=== PATIENT | male | born 1955 | race Caucasian/White ===

== ENCOUNTER 2016-08-04 11:30 | Inpatient (IN) | payer MEDICAID ==
[2016-08-05] MEDS ORDERED: CEFAZOLIN SODIUM 1 GM in NORMAL SALINE MINI-BAG+ 100 ML IV ONE (16:04)
[2016-08-09] MEDS ORDERED: LIDOCAINE HCL 1% 20 ML VIAL SUBCUT ONE (08:50)
[2016-08-09] MEDS ORDERED: ONDANSETRON HCL 4 MG/2 ML VIAL IV ONE (08:50)
[2016-08-09] MEDS ORDERED: FAMOTIDINE IN SALINE, ISO-OSM 20 MG/50 ML PIGGYBACK IV SCH ×2 (09:00→14:15)
[2016-08-09] MEDS ORDERED: TRANEXAMIC ACID 1,000 MG in NORMAL SALINE 100 ML IV SCH ×2 (09:00→14:15)
[2016-08-09] MEDS ORDERED: LACTATED RINGERS 1,000 ML IV SCH ×3 (09:00→15:00)
[2016-08-09] MEDS ORDERED: BACITRACIN 50,000 UNITS VIAL IM ONE ×2 (09:31→09:41)
[2016-08-09] MEDS ORDERED: BACITRACIN 14 APP/14 GM TUBE TOPICAL ONE (09:31)
[2016-08-09] MEDS ORDERED: BUPIVACAINE/EPI 0.25% 1 VIAL VIAL ONE (09:31)
[2016-08-09] MEDS ORDERED: KETOROLAC TROMETHAMINE 30 MG/ML VIAL ONE (09:32)
[2016-08-09] MEDS ORDERED: MORPHINE SULFATE/PF 10 MG/10 ML VIAL ONE ×2 (09:32→09:51)
[2016-08-09] MEDS ORDERED: ROPIVACAINE HCL 0.5% 30 ML ONE (09:34)
[2016-08-09 09:50] LABS: URINE APPEARANCE CLEAR; URINE COLOR YELLOW
[2016-08-09] MEDS ORDERED: TETRACAINE HCL 1% 20 MG/2 ML AMP ONE (09:50)
[2016-08-09 09:51] LABS: URINE BILIRUBIN NEGATIVE (NEGATIVE); URINE BLOOD NEGATIVE (NEGATIVE); URINE GLUCOSE NORMAL (NEGATIVE); URINE KETONE NEGATIVE (NEGATIVE); URINE LEUKOCYTE ESTERASE NEGATIVE (NEGATIVE); URINE NITRITE NEGATIVE (NEGATIVE); URINE PROTEIN NEGATIVE (NEG - TRACE); URINE SPECIFIC GRAVITY > OR = 1.030 (0.001-1.035); URINE UROBILINOGEN 0.2mg/dL (Normal) (NEG-1mg/dL)
[2016-08-09] MEDS ORDERED: FENTANYL 100 MCG/2 ML VIAL ONE (09:51)
[2016-08-09] MEDS ORDERED: CEFAZOLIN SODIUM 1 GM/10 ML VIAL ONE ×2 (09:59→15:13)
[2016-08-09] MEDS ORDERED: MIDAZOLAM HCL 2 MG/2 ML VIAL ONE (10:42)
[2016-08-09] MEDS ORDERED: MIDAZOLAM HCL 2 MG/2 ML SYR IV SCH (11:00)
[2016-08-09] MEDS ORDERED: LIDOCAINE HCL 2% 20 ML VIAL ONE (11:13)
[2016-08-09] MEDS ORDERED: MIDAZOLAM HCL 2 MG/2 ML SYR IV ONE ×2 (12:00→14:15)
[2016-08-09] MEDS ORDERED: ONDANSETRON HCL 4 MG/2 ML VIAL IV PRN ×3 (14:15→18:25)
[2016-08-09] MEDS ORDERED: MORPHINE SULFATE 10 MG/ML SYR IV PRN (14:15)
[2016-08-09] MEDS ORDERED: NALBUPHINE HCL 10 MG/ML AMP IV PRN ×4 (14:15→15:31)
[2016-08-09] MEDS ORDERED: FENTANYL 100 MCG/2 ML VIAL IV PRN (14:15)
[2016-08-09] MEDS ORDERED: NALOXONE HCL 0.4 MG/ML VIAL IV PRN ×12 (14:15→15:31)
[2016-08-09] MEDS ORDERED: DIPHENHYDRAMINE 50 MG/ML VIAL IV PRN ×4 (14:15→15:31)
[2016-08-09] MEDS ORDERED: DIPHENHYDRAMINE 25 MG CAPSULE PO PRN ×4 (14:15→15:31)
[2016-08-09] MEDS ORDERED: HYDROmorphone HCL 2 MG TABLET PO PRN ×2 (14:52→15:31)
[2016-08-09] MEDS ORDERED: ACETAMINOPHEN 325 MG TABLET PO PRN (14:52)
[2016-08-09] MEDS ORDERED: HYDROcodone/APAP 5/325 MG 1 TAB TABLET PO PRN (14:52)
[2016-08-09] MEDS: CEFAZOLIN SODIUM 1 GM in NORMAL SALINE MINI-BAG+ 100 ML IV SCH ×2 (15:05→22:30)
[2016-08-09] MEDS: ONDANSETRON HCL 4 MG/2 ML VIAL IV PRN ×2 (15:07→16:54)
[2016-08-09] MEDS: LACTATED RINGERS 1,000 ML IV SCH (15:48)
--- NOTE | 2016-08-09 15:54 | OPERATIVE REPORT ---
DATE OF SURGERY: 08/09/16 SURGEON: Austen Feliz DO ANESTHESIA: Spinal. PREOPERATIVE DIAGNOSIS: Left knee osteoarthritis. POSTOPERATIVE DIAGNOSIS: Left knee osteoarthritis. OPERATION PERFORMED: Left total knee arthroplasty. SPECIMENS REMOVED: Diseased bone and soft tissue. ESTIMATED BLOOD LOSS: Minimal. COMPLICATIONS: None. TOTAL TOURNIQUET TIME: 72 minutes. ORTHOPEDIC IMPLANTS 1. [employer] cobalt bone cement high viscosity with gentamycin. 2. [employer] enMarkitguard knee symptoms, series A, standard patella with 3 pegs, ultrahigh molecular weight polyethylene size 37 x 10 mm. 3. [employer] fixed cruciate plate with interlock block titanium/cobalt chrome molybdenum alloy size 79. 4. [employer] en[employer]it[employer] knee system, posterior stabilized tibial bearing 14 mm x 79/83 mm, ultrahigh molecular weight polyethylene. 5. [employer] posterior stabilized open box femoral component left, size 70 mm, cobalt chrome molybdenum alloy. PROCEDURE NOTE: The patient was brought to the operating room suite and after administration of spinal anesthesia the left lower extremity was prepped and draped in a sterile fashion. The incision site was injected with 0.25% bupivacaine with epinephrine prior to incision. A longitudinal linear midline incision was made over the anterior knee, and dissection was carried down bluntly and sharply to the level of the extensor mechanism. Any small bleeders were cauterized with an electrocautery device. A medial parapatellar arthrotomy was performed. Soft tissue dissection and releases were performed removing a portion of the anterior fat pad and the medial lateral meniscus and the anterior cruciate ligament and part of the posterior cruciate ligament. An intramedullary drill was inserted into the femoral canal, retrograde, followed by insertion of the cutting jig set at 5 degrees of valgus and 9 mm of distal cut. The appropriate bone defects were made on the femur, followed by extramedullary cutting jig of the tibia to the appropriate level with its appropriate bone defects, followed by the patella. The patient then received one gram of tranexamic acid IV over 30 minutes. Trial implants were inserted and taken through full range of motion and the knee was noted to be exceptionally stable through all range of motions, both flexion, extension, varus/valgus, shock and toggle. The trial implants were removed, and the knee was copiously irrigated with bacitracin infused with normal saline with a pulsatile lavage. The bone surfaces were tamped dry with lap sponges and cement was interdigitated into the bone through finger impaction, followed by insertion of the final implants. An appropriate sized spacer was inserted in the heel, and the patient's leg was placed on the Joaquin stand. All excess cement was removed while the patellar button was cemented into place. The cocktail containing 150 mg of ropivacaine, 15 mg of Ketoralac, 0.3 mg epinephrine, and 4 mg morphine sulfate in total volume of 60 mL, making up the difference utilizing 0.9% normal saline for a total volume of 60 mL was injected into the surrounding soft tissues and joint capsule. After the cement had hardened, the knee was again copiously irrigated with bacitracin infused with normal saline with pulsatile lavage and the final polyethylene implant was locked into place. The knee was closed in flexion utilizing #2 Fiberwire intermittently with #1 Vicryl, followed by 0 Vicryl, followed by 2-0 Vicryl, followed by running subcutaneous closure utilizing 3-0 Monocryl, followed by subcutaneous closure with 3-0 Monocryl, followed by Dermabond, followed by application of an impervious occlusive foam dressing impregnated with silver. The leg was wrapped with an Yuniel bandage. The patient did have a Hemovac drain placed prior to closure. NATY hose was applied, followed by a Cryo-Cuff, and the patient was transferred from the OR suite to the recovery room in stable condition. BINTA
[2016-08-09] MEDS ORDERED: TRANEXAMIC ACID 1,000 MG in NORMAL SALINE 100 ML IV ONE (20:00)
[2016-08-09] MEDS: DOCUSATE SODIUM 100 MG CAPSULE PO SCH (20:55)
[2016-08-09] MEDS: ASCORBIC ACID 500 MG TABLET PO SCH (20:55)
[2016-08-09] MEDS ORDERED: DOCUSATE SODIUM 100 MG CAPSULE PO SCH (21:00)
[2016-08-09] MEDS ORDERED: ASCORBIC ACID 500 MG TABLET PO SCH (21:00)
[2016-08-09] MEDS ORDERED: CEFAZOLIN SODIUM 1 GM in NORMAL SALINE MINI-BAG+ 100 ML IV SCH (22:00)
[2016-08-10] MEDS: LACTATED RINGERS 1,000 ML IV SCH (05:21)
[2016-08-10 05:45] LABS: BASOPHILS 0.7 % (0.0-2.0); EOSINOPHILS 4.7 % (0.0-6.0); EOSINOPHILS# 0.3 X 10^3uL (0.0-0.4); HEMATOCRIT 38.3 % (42.0-54.0); HEMOGLOBIN 12.7 g/dL (14.0-18.0); LYMPHOCYTES 25.9 % (20.0-40.0); LYMPHOCYTES# 1.5 X 10^3uL (0.8-3.8); MEAN CELL VOLUME 92.8 fL (84.0-102.0); MEAN CORPUS. HGB CONCENTRATION 33.1 g/dL (32.0-36.0); MEAN CORPUSCULAR HEMOGLOBIN 30.7 pg (29.0-35.0); MONOCYTES 9.9 % (2.0-10.0); MONOCYTES# 0.6 X 10^3uL (0.2-1.0); NEUTROPHILS 58.8 % (54.0-75.0); NEUTROPHILS# 3.4 X 10^3uL (2.6-6.7); RED BLOOD COUNT 4.13 X 10^6uL (4.20-6.10); WHITE BLOOD COUNT 5.8 X 10^3uL (3.9-10.7)
[2016-08-10] MEDS: CEFAZOLIN SODIUM 1 GM in NORMAL SALINE MINI-BAG+ 100 ML IV SCH (06:20)
--- NOTE | 2016-08-10 08:27 | PROGRESS NOTE: Orthopedics ---
Orthopedic PN Subjective - Subjective Principal Diagnosis: s/p Left Total Knee Arthroplasty Post-op Day: 1 Interval history: The patient did have some nausea and vomiting last night. He has had good pain control . He has received post operative DVT and antibiotic prophylaxis. Ortho PN Objective Exam - Latest Vital Signs and I&O Latest Vital Signs/I&O: Vital Signs Temp 36.8 C 08/10/16 06:00 Pulse 66 08/10/16 06:00 Resp 18 08/10/16 06:00 BP 120/90 08/10/16 06:00 Pulse Ox 94 08/10/16 06:00 Intake & Output 08/09/16 08/10/16 08/10/16 17:59 05:59 17:59 Intake Total 3115 1699 Output Total 880 300 140 Balance 2235 1399 -140 Weight 92.986 kg Intake: IV 2500 1059 Right Forearm 2500 1059 Oral 615 640 Output: Drainage 255 140 Left Knee 255 140 Urine 425 300 Uretheral (Ayoub) 175 Emesis 200 Other: Urine Appearance Clear Clear Urine Color Yellow Yellow Uretheral (Ayoub) Straw Voiding Method Indwelling Catheter Indwelling Catheter # Bowel Movements 0 08/10/16 08:25 - Post-Operative Exam Post-op Day: 1 Dressing Status: dry & intact Drainage Amount: none Distal Pulses: +2 Active Motor: intact Sensation: intact Sean's sign: Negative Calf tenderness: no Weight bearing status: as tolerated - Lab Labs: Laboratory Last Values WBC 5.8 X 10^3uL (3.9-10.7) 08/10/16 05:10 RBC 4.13 X 10^6uL (4.20-6.10) L 08/10/16 05:10 Hgb 12.7 g/dL (14.0-18.0) L 08/10/16 05:10 Hct 38.3 % (42.0-54.0) L 08/10/16 05:10 MCV 92.8 fL (84.0-102.0) 08/10/16 05:10 MCH 30.7 pg (29.0-35.0) 08/10/16 05:10 MCHC 33.1 g/dL (32.0-36.0) 08/10/16 05:10 RDW 12.0 % (11.5-14.5) 08/10/16 05:10 Plt Count 259 X 10^3uL (130-440) 08/10/16 05:10 MPV 8.0 fL (7.4-10.4) 08/10/16 05:10 Neutrophils % 58.8 % (54.0-75.0) 08/10/16 05:10 Lymphocytes % 25.9 % (20.0-40.0) 08/10/16 05:10 Eosinophils % 4.7 % (0.0-6.0) 08/10/16 05:10 Basophils % 0.7 % (0.0-2.0) 08/10/16 05:10 Neutrophils # 3.4 X 10^3uL (2.6-6.7) 08/10/16 05:10 Lymphocytes # 1.5 X 10^3uL (0.8-3.8) 08/10/16 05:10 Monocytes 9.9 % (2.0-10.0) 08/10/16 05:10 Monocytes # 0.6 X 10^3uL (0.2-1.0) 08/10/16 05:10 Eosinophils # 0.3 X 10^3uL (0.0-0.4) 08/10/16 05:10 Basophils # 0.0 X 10^3uL (0.0-0.1) 08/10/16 05:10 Urine Color Yellow 08/09/16 09:20 Urine Appearance Clear 08/09/16 09:20 Urine pH 5.0 (5-7) 08/09/16 09:20 Ur Specific [place] > or = 1.030 (0.001-1.035) 08/09/16 09:20 Urine Protein Negative (NEG - TRACE) 08/09/16 09:20 Urine Ketones Negative (NEGATIVE) 08/09/16 09:20 Urine Blood Negative (NEGATIVE) 08/09/16 09:20 Urine Nitrate Negative (NEGATIVE) 08/09/16 09:20 Urine Bilirubin Negative (NEGATIVE) 08/09/16 09:20 Urine Urobilinogen 0.2mg/dl (normal) (NEG-1mg/dL) 08/09/16 09:20 Ur Leukocyte Esterase Negative (NEGATIVE) 08/09/16 09:20 Urine Glucose Normal (NEGATIVE) 08/09/16 09:20 - Allied Health Notes Allied health notes reviewed: nursing Assessment and Plan-Ortho - Date of Encounter Date of Encounter: 08/10/16 Estimated anticipated discharge: 08/12/16 Quality Questions - VTE Prophylaxis Assessment VTE Present on Admission?: No Patient at risk for venous thromboembolism?: Yes VTE Risk Level: High Risk VTE Medical Contraindication: Not needed
[2016-08-10] MEDS: ENOXAPARIN SODIUM 30 MG/0.3 ML SYR SUBCUT SCH ×2 (08:31→20:50)
[2016-08-10] MEDS: ASCORBIC ACID 500 MG TABLET PO SCH ×2 (08:32→20:49)
[2016-08-10] MEDS: FOLIC ACID 1 MG TABLET PO SCH (08:32)
[2016-08-10] MEDS: DOCUSATE SODIUM 100 MG CAPSULE PO SCH ×2 (08:32→20:49)
[2016-08-10] MEDS: BISACODYL 5 MG TABLET PO SCH (08:33)
[2016-08-10] MEDS: POLYETHYLENE GLYCOL 3350 17 GM POWD.PACK PO SCH (08:33)
[2016-08-10] MEDS: LISINOPRIL 20 MG TABLET PO SCH (08:49)
[2016-08-10] MEDS ORDERED: ENOXAPARIN SODIUM 30 MG/0.3 ML SYR SUBCUT SCH (09:00)
[2016-08-10] MEDS ORDERED: POLYETHYLENE GLYCOL 3350 17 GM POWD.PACK PO SCH (09:00)
[2016-08-10] MEDS ORDERED: FOLIC ACID 1 MG TABLET PO SCH (09:00)
[2016-08-10] MEDS ORDERED: BISACODYL 5 MG TABLET PO SCH (09:00)
--- NOTE | 2016-08-10 11:47 | RADIOLOGY REPORT ---
Two views of the left knee are compared with prior films dated 10/23/2014. There has been interval placement of left total knee arthroplasty. No other change is identified. Components appear intact and in appropriate position. IMPRESSION: Interval unremarkable left total knee arthroplasty. MTDD
[2016-08-10] MEDS: HYDROcodone/APAP 5/325 MG 1 TAB TABLET PO PRN ×2 (15:04→18:05)
[2016-08-10] MEDS: ACETAMINOPHEN 325 MG TABLET PO PRN (20:49)
[2016-08-10 23:25] VITALS: RESP 18
[2016-08-11] MEDS: ACETAMINOPHEN 325 MG TABLET PO PRN ×2 (02:28→08:13)
[2016-08-11 05:58] LABS: BASOPHILS 0.6 % (0.0-2.0); EOSINOPHILS 2.1 % (0.0-6.0); EOSINOPHILS# 0.2 X 10^3uL (0.0-0.4); HEMATOCRIT 35.8 % (42.0-54.0); HEMOGLOBIN 11.5 g/dL (14.0-18.0); LYMPHOCYTES 14.1 % (20.0-40.0); MEAN CELL VOLUME 92.3 fL (84.0-102.0); MEAN CORPUSCULAR HEMOGLOBIN 29.6 pg (29.0-35.0); MEAN PLATELET VOLUME 8.2 fL (7.4-10.4); MONOCYTES 10.7 % (2.0-10.0); MONOCYTES# 0.8 X 10^3uL (0.2-1.0); NEUTROPHILS 72.5 % (54.0-75.0); NEUTROPHILS# 5.2 X 10^3uL (2.6-6.7); RED BLOOD COUNT 3.88 X 10^6uL (4.20-6.10); RED CELL DISTRIBUTION WIDTH 11.9 % (11.5-14.5); WHITE BLOOD COUNT 7.2 X 10^3uL (3.9-10.7)
[2016-08-11] MEDS: DOCUSATE SODIUM 100 MG CAPSULE PO SCH (08:08)
[2016-08-11] MEDS: FOLIC ACID 1 MG TABLET PO SCH (08:09)
[2016-08-11] MEDS: BISACODYL 5 MG TABLET PO SCH (08:09)
[2016-08-11] MEDS: ENOXAPARIN SODIUM 30 MG/0.3 ML SYR SUBCUT SCH (08:09)
[2016-08-11] MEDS: POLYETHYLENE GLYCOL 3350 17 GM POWD.PACK PO SCH (08:10)
[2016-08-11] MEDS: LISINOPRIL 20 MG TABLET PO SCH (08:10)
[2016-08-11] MEDS: ASCORBIC ACID 500 MG TABLET PO SCH (08:11)
[2016-08-11 10:23] VITALS: BP 108/76; PULSE 102; TEMP 99.3; O2SAT 92
--- NOTE | 2016-08-11 11:15 | DC SUMMARY: Orthopedic Note ---
Discharge Summary: Surg/OB Provider: Date of Admission: 08/09/16 Admitting Provider: NICOLE BHATIA DO Attending Provider: NICOLE BHATIA DO Discharging Provider: NICOLE BHATIA DO Primary Care Provider: Discharge Date: 08/11/16 Hospital Course: Mr. BARNETT is a 61 year old male who underwent a left total knee arthroplasty on 09 August. Patient received appropriate postoperative DVT and antibiotic prophylaxis. He was up and ambulating well with physical therapy in the hallway. His pain was well- controlled with oral analgesia. His Ayoub and Hemovac was discontinued on postop day 1. Discharge - Patient/Caregiver Discharge Instructions Activity Level: WBAT with walker Diet: reg Follow up: NICOLE BHATIA DO [ACTIVE (Staff Physician)] - 08/17/16 10:00 am Overall discharge status: patient is progressing back to baseline Home Medications: HYDROcodone/APAP 5/325 MG [HYDROCODONE/APAP 5mg/325mg*] 2 tab PO Q3H PRN #60 tablet PRN Reason: Pain, Severe Enoxaparin Sodium [LOVENOX 30mg/0.3mL*] 30 mg SUBCUT BID #24 syr Disposition: HOME, SELF-CARE 1. Medical reason for no anticoagulation order on D/C?: Contraindicated ( Lovenox was ordered on D/C.) 2. Medical reason for no anticoag overlap on D/C?: Contraindicated Orthopedic: Discharge Phy Exam - Latest Vital Signs and I&O Latest Vital Signs/I&O: Vital Signs Temp 37.4 C 08/11/16 10:19 Pulse 102 H 08/11/16 10:19 Resp 18 08/11/16 10:19 BP 108/76 08/11/16 10:19 Pulse Ox 92 08/11/16 10:19 Intake & Output 08/10/16 08/11/16 08/11/16 17:59 05:59 17:59 Intake Total 1050 700 Output Total 990 550 Balance 60 150 Intake: IV 325 Right Forearm 325 Oral 725 700 Output: Drainage 140 Left Knee 140 Urine 850 550 Other: Urine Appearance Clear Clear Clear Urine Color Pale Yellow Yellow Uretheral (Ayoub) Straw Stool Size Large Stool Characteristics Formed Brown Voiding Method Toilet Toilet Toilet # Voids 3 6 # Bowel Movements 1 0 - Post-Operative Exam Post-op Day: 2 Dressing Status: dry & intact Drainage Amount: none Distal Pulses: +2 Active Motor: intact Sensation: intact Sean's sign: Negative Calf tenderness: no ROM Flexion: 90 ROM Extension: 15 Weight bearing status: as tolerated - Allied Health Notes Allied health notes reviewed: OT, PT Discharge Summary Data - Medication History Medication History: Home Medications Ascorbic Acid [Vitamin C*] 500 mg PO DAILY 08/09/16 Ibuprofen [Advil] 200 - 400 mg PO Q6H PRN 08/09/16 Lisinopril [Prinivil*] 40 mg PO DAILY 08/09/16 Multivitamins,Therapeutic [Thera] 1 tab PO DAILY 08/09/16 Inpatient Medications 08/09/16 15:31 Acetaminophen [Tylenol] 325 - 650 mg PO Q4H PRN HYDROcodone/APAP 5/325 MG [[facility]] 2 tab PO Q3H PRN HYDROmorphone HCL [Dilaudid] 2 mg PO Q4H PRN Lactated Ringers [Lr 1000 ml Bag] 1,000 ml IV CONT oxyCODONE HCL IR [Oxy Ir] 5 - 10 mg PO Q3H PRN 08/09/16 18:25 Ondansetron HCl [Zofran] 4 mg IV Q1H PRN 08/09/16 21:00 Ascorbic Acid [Vitamin C] 500 mg PO BID Docusate Sodium [Colace] 100 mg PO BID 08/10/16 09:00 Bisacodyl [Dulcolax] 10 mg PO DAILY Enoxaparin Sodium [Lovenox] 30 mg SUBCUT BID Folic Acid [Folate] 1 mg PO DAILY Lisinopril [Prinivil] 40 mg PO DAILY Polyethylene Glycol 3350 [miraLAX] 17 gm PO DAILY Procedures and tests throughout hospitalization: Completed Lab Orders 08/09/16 09:20 UA W/O MICRO - NIKI, CUL IF IND [URINE] Routine 08/10/16 05:10 CBC AUTO DIF, MDIF/RMOR IF IND [HEM] AMDRAW 08/11/16 05:10 CBC AUTO DIF, MDIF/RMOR IF IND [HEM] AMDRAW Completed Imaging Orders 08/09/16 14:52 KNEE; 1 [place] [address] [place] [address] [RAD] Routine Completed Microbiology Orders 08/10/16 13:40 OCCULT BLOOD (1-3 SAMPLES) [RM] Pending Orders 08/05/16 16:04 Resuscitation Status Routine 08/09/16 08:50 Insert Peripheral IV ONCE 08/09/16 14:15 Liz hugger if temp <34 C PRN Did pt have a spinal/epidural? . Maintain IV access post spinal CONTINUOUS Monitor End Tidal CO2 CONTINUOUS Narcan @ bedside x24h after sp .x24hrs Notify Anesthesia . Oxygen by Nasal Cannula TITRATE TO >90% Titrate Oxygen TITRATE TO >90% Vital Signs Q1HX12,Q2H Warm blankets if temp<36 C PRN 08/09/16 14:52 Admit: Inpatient Routine Activity: Ambulate with Assist TID Activity: BRP w/ Assist Only . Activity: FWB USE WALKER Activity: Knee Extension . Activity: Up to Chair TID Apply ice to affected area PRN Clinical Pathway: updt in cht QSHIFT Did pt have a spinal/epidural? . Incentive Spirometry Q1H Notify Physician . Titrate Oxygen TITRATE TO >90% Turn, Cough, and Deep Breathe Q2H [employer] Teacher Consult [CM] Routine 08/09/16 15:31 Maintain IV access post spinal CONTINUOUS Narcan @ bedside x24h after sp .x24hrs Vital Signs ROUTINE VITALS (Q4H) KNEE; [address] [place] [address] [place] [address] [RAD] Routine Acetaminophen [Tylenol] 325 - 650 mg PO Q4H PRN HYDROcodone/APAP 5/325 MG [[facility]] 2 tab PO Q3H PRN HYDROmorphone HCL [Dilaudid] 2 mg PO Q4H PRN Lactated Ringers [Lr 1000 ml Bag] 1,000 ml IV CONT oxyCODONE HCL IR [Oxy Ir] 5 - 10 mg PO Q3H PRN 08/09/16 18:25 Ondansetron HCl [Zofran] 4 mg IV Q1H PRN 08/09/16 21:00 Ascorbic Acid [Vitamin C] 500 mg PO BID Docusate Sodium [Colace] 100 mg PO BID 08/09/16 Dinner Regular [DIET] 08/10/16 09:00 Bisacodyl [Dulcolax] 10 mg PO DAILY Enoxaparin Sodium [Lovenox] 30 mg SUBCUT BID Folic Acid [Folate] 1 mg PO DAILY Lisinopril [Prinivil] 40 mg PO DAILY Polyethylene Glycol 3350 [miraLAX] 17 gm PO DAILY 08/10/16 12:28 Physical Therapy Plan of Care [PT] Routine 08/12/16 05:00 CBC AUTO DIF, MDIF/RMOR IF IND [HEM] AMDRAW Labs on day of discharge: Labs from last 24 hours 08/11/16 05:10 WBC 7.2 RBC 3.88 L Hgb 11.5 L Hct 35.8 L MCV 92.3 MCH 29.6 MCHC 32.0 RDW 11.9 Plt Count 275 MPV 8.2 Neutrophils % 72.5 Lymphocytes % 14.1 L Eosinophils % 2.1 Basophils % 0.6 Neutrophils # 5.2 Lymphocytes # 1.0 Monocytes 10.7 H Monocytes # 0.8 Eosinophils # 0.2 Basophils # 0.0 - Impressions The patient should continue to do well with transfers and will function well and his home with a walker.
[2016-08-11] MEDS: HYDROcodone/APAP 5/325 MG 1 TAB TABLET PO PRN (12:11)
--- NOTE | 2016-08-13 10:39 | PREOPERATIVE H&P ---
History of Present Illness (Jesica Gale RN; 08/03/2016 9:38 AM) Subjective Automated Cutting Machine Operator(Ivan Rogers M.D.; 08/09/2016 11:02 AM) CC: Consult. Patient is a 61-year-old male has been referred by Orthopedic Surgeon Dr. Feliz for consultation, preoperative history and physical and surgical clearance. Patient is scheduled for left total knee arthroplasty on 08/09/16. Please see Dr. Feliz's notes for further details. On further questioning, patient has underlying hypertension with no cardiopulmonary symptoms or cough. Blood pressures have been in the 150-175/85 range. He functions at a 4 METS level. No other concerns at this time. Reviewed updated allergies, medications, past medical history, social history and family history in detail and updated EHR in detail. ROS: No heart, lung, kidney, liver, diabetes, thyroid, seizures, PUD, hypertension, hyperlipidemia, skin, allergies or bleeding disorders. No nocturia. PREVENTIVE HEALTH: Tdap which will be given today. Recommended Zostavax. Recommended colonoscopy for screening purposes. Also patient has a skin lesion on his nose which has been slowly growing over the last 6 months, and we will refer to Dermatology. Problem List/Past Medical (Jesica Gale RN; 08/03/2016 5:54 PM) Osteoarthritis of left knee (M17.12) Left knee pain (M25.562) Gout (M10.9) HTN (hypertension) (I10) Allergies (Jesica Gale RN; 08/03/2016 9:41 AM) No Known Drug Allergies Family History (Jesica Gale RN; 08/03/2016 5:55 PM) Father CAD/CABG @ 67 Mother @ 86 of AAA Social History (Jesica Gale RN; 08/03/2016 5:55 PM) Alcohol Use Drinks Socially. Tobacco Use Never smoker. Marital status . Number of Children 2. Occupation Employee Benefits Coordinator, [employer] Customer [employer] Seat Belt Worn Smoke Detectors Present Sunblock Not Used Recommended. Medication History (Jesica Gale RN; 08/03/2016 9:41 AM) Medications Reconciled Advil (200MG Capsule, 4 caps Oral two times daily, as needed) Active. Lisinopril (20MG Tablet, 1 tab Oral daily) Active. Health Maintenance History (Jesica Gale, RN; 08/03/2016 5:56 PM) Colonoscopy Due Stress ECHO Patient Declines DEXA Patient Declines Vitals (Jesica Gale RN; 08/03/2016 10:02 AM) 08/03/2016 9:41 AM Weight: 208.9 lb Height: 71in Weight was reported by patient. Height was reported by patient. Body Surface Area: 2.15 m Body Mass Index: 29.14 kg/m Temp.: 98.4F(Temporal) Pulse: 71 (Regular) Resp.: 16 (Unlabored) P.OX: 93% (Room air) BP: 150/84 (Sitting, Left Arm, Standard) Objective Automated Cutting Machine Operator(Ivan Rogers M.D.; 08/09/2016 11:02 AM) GENERAL: Well-developed, well-nourished male in no acute distress, alert and oriented x3. HEENT: EOMI. PERRLA. Fundi benign with normal vessels and sharp disks. Normal conjunctivae. TM's normal. No coryza. Pharynx not injected. NECK: No lymphadenopathy. No thyromegaly. No carotid bruits. Neck supple. CHEST: Clear. No rales, rhonchi or wheezes. Good breath sounds and symmetry throughout. COR: Regular, rate and rhythm without murmurs, gallops, rubs or clicks. No JVD. No ectopy. ABDOMEN: Soft, nontender. No hepatosplenomegaly. No masses. No bruits. No inguinal nodes. Bowel sounds present. EXTREMITIES: No clubbing, cyanosis or edema. Good peripheral pulses. Please see Dr. Feliz's notes with respect to left knee. NEUROLOGIC: Cranial nerves 2-12 intact. Motor 5/5, sensory intact. DTRs 2+. Cerebellar function normal. SKIN: There is a 3 mm pearly flesh colored nodule on the tip of the nose. EKG: NSR at 66 b.p.m., LAD, otherwise normal. LAB: Pending. Assessment & Plan (Jesica Gale RN; 08/03/2016 5:57 PM) Pre-operative general physical examination (Z01.818) Story: Left Total Knee Arthroplasty; Dr. Feliz Current Plans Pt Education - How to access health information online: discussed with patient and provided information. HTN (hypertension) (I10) Assessments Automated Cutting Machine Operator(Ivan Rogers M.D.; 08/09/2016 11:02 AM) 1. Preoperative history and physical for left total knee arthroplasty. 2. Hypertension, poor control. Plans Automated Cutting Machine Operator(Ivan Rogers M.D.; 08/09/2016 11:02 AM) 1. Lab work pending. 2. Increase Lisinopril to 20 mg 2 tabs p.o. daily - will call in a prescription for 40 mg p.o. daily if this seems to improve blood pressure. 3. Patient is considered cleared for above surgery otherwise. 4. Flu shot. 5. Tdap. 6. Referral to Dining Services Director Dr. kSelton for skin check and further evaluation of nose skin nodule. MTDD
== END 2016-08-11 11:15 | disposition home or self-care (01) | DRG 470 ==
LOC: IN 08-09 09:15
PROVIDERS: ADMIT Orthopaedic Surgery; ATTEND Orthopaedic Surgery
PROC: 0SRD0J9 Replacement of Left Knee Joint with Synthetic Substitute, Cemented, Open Approach (ICD-10-PCS; principal; 2016-08-09)
DX: M17.12 Unilateral primary osteoarthritis, left knee (principal); I10 Essential (primary) hypertension; Z79.899 Other long term (current) drug therapy
CPT/HCPCS: 36415; 81003; 82270; 85025; J0171; J0690; J1650; J1885; J2250; J2405; J2795; J7120